=== PATIENT | male | born 1955 | race Two or more races ===

== ENCOUNTER 2017-04-24 12:40 | Emergency (ER) | payer BC, OTHER ==
[~2017-04-24] VITALS: Ht 177.8 cm; Wt 90.0 kg
[2017-04-24 16:50] VITALS: BP 137/74
== END 2017-04-24 16:52 | disposition home or self-care (01) ==
LOC: ER 12:54
DX: S83.005A Unspecified dislocation of left patella, initial encounter (principal); W01.0XXA Fall on same level from slipping, tripping and stumbling without subsequent striking against object, initial encounter; Y93.89 Activity, other specified; Y92.89 Other specified places as the place of occurrence of the external cause; Y99.8 Other external cause status
CPT/HCPCS: 73562; 99284; L1830; Z7610